=== PATIENT | female | born 1985 | race African-American/Black ===

== ENCOUNTER 2018-04-12 10:34 | Emergency (ER) | payer OTHER ==
[~2018-04-12] VITALS: Ht 165.1 cm; Wt 89.8 kg
[~2018-04-12 10:34] MED LIST: FERR-38 PO
[2018-04-12 11:32] LABS: BASOPHILS # (AUTO) 0.1 K/uL (0.0-8.0); BASOPHILS % (AUTO) 1.3 % (0.0-2.0); EOSINOPHILS # (AUTO) 0.1 K/uL (0.0-0.7); EOSINOPHILS % (AUTO) 1.2 % (0.0-7.0); HEMATOCRIT 35.6 % (31.2-41.9); HEMOGLOBIN 11.4 g/dL (10.9-14.3); LYMPHOCYTES # (AUTO) 2.2 K/uL (20.0-40.0); LYMPHOCYTES % (AUTO) 22.9 % (20.5-51.5); MEAN CORPUSCULAR HEMOGLOBIN 23.5 uug (24.7-32.8); MEAN CORPUSCULAR HGB CONC 32 g/dL (32.3-35.6); MEAN CORPUSCULAR VOLUME 73.5 fL (75.5-95.3); MONOCYTES # (AUTO) 0.4 K/uL (2.0-10.0); MONOCYTES % (AUTO) 4.5 % (0.0-11.0); NEUTROPHILS # (AUTO) 6.6 K/uL (1.8-8.9); NEUTROPHILS % (AUTO) 70.1 % (38.5-71.5); PLATELET COUNT (AUTO) 390 K/uL (179-408); RED BLOOD CELL COUNT(AUTO) 4.84 MIL/uL (3.63-4.92); WHITE BLOOD COUNT (AUTO) 9.5 K/uL (3.8-11.8)
[2018-04-12 11:37] LABS: CREATININE 0.7 mg/dL (0.6-1.3); POTASSIUM 3.8 mmol/L (3.5-5.1)
[2018-04-12 11:42] LABS: BILIRUBIN,DIRECT 0.1 mg/dL (0.0-0.2); BILIRUBIN,TOTAL 0.4 mg/dL (0.2-1.0); TOTAL PROTEIN, SERUM 7.6 g/dL (6.4-8.2)
[2018-04-12 11:50] LABS: THYROID STIMULATING HORMONE 1.62 mIU/mL (0.358-3.740)
--- NOTE | 2018-04-12 12:23 | NUR ---
pt ambulatory with a steady gait. Patient discharged to home in stable conditon. Written and verbal after care instructions given. Patient verbalizes understanding of instructions. COPIES OF EKG AND LAB TESTS ALSO GIVEN.
[2018-04-12 12:25] VITALS: BP 114/82
== END 2018-04-12 12:30 | disposition home or self-care (01) ==
LOC: ER 11:29
DX: R00.2 Palpitations (principal)
CPT/HCPCS: 36415; 70030-TC; 83550; 84443; 85025; 85730; 93005; A4663

== ENCOUNTER 2018-04-28 02:11 | Inpatient (IN) | payer OTHER ==
[~2018-04-28] VITALS: Ht 165.1 cm; Wt 91.6 kg
[2018-04-28] VITALS (15 sets, daily range): BP systolic 95–129; BP diastolic 52–79
[2018-04-28] MEDS ORDERED: DILTIAZEM HCL 25 MG IV IV ONE ×2 (02:45→04:15)
[2018-04-28] MEDS ORDERED: IV NORMAL SALINE 1000 ML BAG IV ONE ×2 (02:45→04:15)
[2018-04-28] MEDS ORDERED: DILTIAZEM HCL 25 MG IV ONE ×2 (02:58→03:31)
[2018-04-28] MEDS ORDERED: FERROUS GLUCONATE PO (03:25)
[2018-04-28 03:29] LABS: CREATININE 0.7 mg/dL (0.6-1.3); POTASSIUM 3.2 mmol/L (3.5-5.1)
[2018-04-28 03:31] LABS: BASOPHILS # (AUTO) 0.2 K/uL (0.0-8.0); BASOPHILS % (AUTO) 1.8 % (0.0-2.0); EOSINOPHILS # (AUTO) 0.1 K/uL (0.0-0.7); EOSINOPHILS % (AUTO) 1.1 % (0.0-7.0); HEMATOCRIT 32.9 % (31.2-41.9); HEMOGLOBIN 10.6 g/dL (10.9-14.3); LYMPHOCYTES # (AUTO) 4.4 K/uL (20.0-40.0); LYMPHOCYTES % (AUTO) 35.9 % (20.5-51.5); MEAN CORPUSCULAR HEMOGLOBIN 24.1 uug (24.7-32.8); MEAN CORPUSCULAR HGB CONC 32 g/dL (32.3-35.6); MONOCYTES # (AUTO) 0.6 K/uL (2.0-10.0); NEUTROPHILS # (AUTO) 6.9 K/uL (1.8-8.9); NEUTROPHILS % (AUTO) 56.2 % (38.5-71.5); PLATELET COUNT (AUTO) 476 K/uL (179-408); RED BLOOD CELL COUNT(AUTO) 4.39 MIL/uL (3.63-4.92); WHITE BLOOD COUNT (AUTO) 12.4 K/uL (3.8-11.8)
[2018-04-28] MEDS ORDERED: DILTIAZEM HCL 50 MG IV ONE (03:32)
--- NOTE | 2018-04-28 03:36 | NUR ---
Call placed to [facility], Dr. Vazquez speaking with BIANCA.
[2018-04-28] MEDS: DILTIAZEM HCL IV 125 MG in IV DEXTROSE 5% 100 ML IV PRN ×2 (03:44→06:51)
[2018-04-28] MEDS ORDERED: ENOXAPARIN SODIUM 80 MG/0.8 ML DISP.SYRIN SQ ONE ×2 (04:00→04:15)
[2018-04-28 04:02] LABS: *URINE HCG, QUAL NEGATIVE (NEGATIVE)
--- NOTE | 2018-04-28 04:03 | NUR ---
Dr. Contreras speaking to Dr. Dutta ([facility]).
[2018-04-28] MEDS ORDERED: MAGNESIUM HYDROXIDE 30 ML LIQUID UDC PO PRN (04:15)
[2018-04-28] MEDS ORDERED: ONDANSETRON 4 MG/2 ML VIAL IV PRN (04:15)
[2018-04-28] MEDS ORDERED: ACETAMINOPHEN 325 MG TABLET PO PRN (04:15)
[2018-04-28] MEDS ORDERED: HYDROCODONE/APAP 5-325MG TABLET PO PRN (04:15)
[2018-04-28] MEDS ORDERED: POTASSIUM CHLORIDE 100 ML ONE (04:15)
[2018-04-28] MEDS ORDERED: Z GUARD REMEDY PASTE 57 GM TUBE TOP PRN (04:15)
--- NOTE | 2018-04-28 04:22 | NUR ---
TITRATED CARDIZEM DRIP. INFUSING NOW AT 10 MG/HR. BP 122/85. HR 130. SA02 100% RA.
[2018-04-28 04:30] LABS: ALANINE AMINOTRANSFERASE 35 U/L (14-59); ALKALINE PHOSPHATASE 116 U/L (50-136); ASPARTATE AMINOTRANSFERASE 26 U/L (15-37); BILIRUBIN,DIRECT < 0.1 mg/dL (0.0-0.2); BILIRUBIN,TOTAL 0.2 mg/dL (0.2-1.0); TOTAL PROTEIN, SERUM 8.1 g/dL (6.4-8.2)
[2018-04-28] MEDS: POTASSIUM CHLORIDE 50 ML IV SCH ×2 (04:31→04:45)
--- NOTE | 2018-04-28 05:25 | NUR ---
Pt. admitted to CCU, under care of Dr. Dtuta Belongs List completed
--- NOTE | 2018-04-28 05:45 | NUR ---
ADMITTED FROM ER VIA GURNEY, ALERT & ORIENTED X3. ADM. DX OF RAPID AFID, RVR. ON CARDIZEM DRIP @ 10MG/HR ON LFA. ON RM AIR SAT OF 99%. NOT IN ANY DISTRESS.
[2018-04-28] MEDS ORDERED: DILTIAZEM HCL IV 125 MG in IV DEXTROSE 5% 100 ML IV PRN (06:45)
[2018-04-28 07:14] LABS: *AMPHETAMINE, URINE NEGATIVE (NEGATIVE); *BARBITURATE, URINE NEGATIVE (NEGATIVE); *CANNABINOID, URINE NEGATIVE (NEGATIVE); *COCCAINE, URINE NEGATIVE (NEGATIVE); *OPIATE, URINE NEGATIVE (NEGATIVE); *PHENCYCLIDINE SCREEN,URINE NEGATIVE (NEGATIVE)
--- NOTE | 2018-04-28 07:30 | NUR ---
received a 32 y/o female pt as case of A-Fib, pt alert ox3, connected to ecg monitor v/s showing atrial fib slow rate 93bpm. pt has two iv lines on lt hand and lt forearm, receiving cardizem iv @10mg/hr.
--- NOTE | 2018-04-28 07:45 | NUR ---
noticed patient still atrial fib, ekg done, cortez, DEVULCANIZER CHARGER informed about patient and no new orders given
[2018-04-28] MEDS ORDERED: FERROUS GLUCONATE 27 MG PO SCH (09:00)
[2018-04-28] MEDS ORDERED: FERROUS GLUCONATE 324 MG TABLET PO SCH (09:00)
--- NOTE | 2018-04-28 11:39 | NUR ---
DR CHERY WAS CONTACTED, UPDATES GIVEN REGARDS PT CONVERTING BACK TO SINUS RHYTHM, ORDERED TO DC SAVANNA FISH, AND HE WILL LATER TODAY TO ASSESS PT
--- NOTE | 2018-04-28 15:09 | NUR ---
SEEN BY DR CHERY, GAVE THE CLEARENCE FOR PATIENTS DISCHAREG TO HOME, AND WROTE DISCHARGE PRESCRIPTION.
--- NOTE | 2018-04-28 17:16 | NUR ---
PATIENT DISCHARGED TO HOME, DISCHARGE PRESCRIPTION AND EDUCATION GIVEN, ALL BELONGINGS RECEIVED AND FORM SIGNED. PT LEFT HOSPITAL ALONE AMBULATORY.
== END 2018-04-28 17:00 | disposition home or self-care (01) | DRG 201 ==
LOC: ER 02:13 → CCU 04:42
PROVIDERS: ADMIT Family Medicine; ATTEND Hospitalist
PROC: 3E033RZ Introduction of Antiarrhythmic into Peripheral Vein, Percutaneous Approach (ICD-10-PCS; principal; 2018-04-28)
DX: I48.91 Unspecified atrial fibrillation (principal); D64.9 Anemia, unspecified; Z83.49 Family history of other endocrine, nutritional and metabolic diseases; E87.6 Hypokalemia; D72.829 Elevated white blood cell count, unspecified; Z91.19 Patient's noncompliance with other medical treatment and regimen; N92.0 Excessive and frequent menstruation with regular cycle
CPT/HCPCS: 36415; 70030-TC; 71045; 80307; 83735; 84132; 84443; 84703; 85025; 85730; 86850; 86900; 86901; 93005; 93307; A4663; G0378; J1650; J3480; J3490; J7030; J7060

== ENCOUNTER 2022-02-22 09:38 | Inpatient (IN) | payer OTHER ==
[~2022-02-22] VITALS: Ht 165.1 cm; Wt 89.8 kg
[2022-02-22] VITALS (22 sets, daily range): BP systolic 93–125; BP diastolic 54–79
[~2022-02-22 09:38] MED LIST changes: -FERR-38 PO; +FERROUS GLUCONATE PO
[2022-02-22] MEDS ORDERED: IV NORMAL SALINE 500 ML BAG IV ONE ×2 (10:00→11:00)
[2022-02-22] MEDS ORDERED: ASPIRIN 81 MG TAB.CHEW PO ONE (10:00)
[2022-02-22] MEDS ORDERED: ASPIRIN 81 MG TAB.CHEW ONE (10:28)
[2022-02-22 10:36] LABS: *BILIRUBIN,URIN NEGATIVE (NEGATIVE); *BLOOD, URINE NEGATIVE (NEGATIVE); *CLARITY,URINE CLEAR (CLEAR); *KETONES,URINE NEGATIVE (NEGATIVE); *UROBILINOGEN,URINE 0.2 E.U./dl (NORMAL); LEUKOCYTE ESTERASE ,URINE 1+ (NEGATIVE); NITRITE, URINE NEGATIVE (NEGATIVE); UGLUCOSE NEGATIVE (NEGATIVE)
[2022-02-22 10:39] LABS: *COLOR,URINE COLORLESS (YELLOW)
[2022-02-22 10:40] LABS: *URINE HCG, QUAL NEGATIVE (NEGATIVE)
[2022-02-22 10:42] LABS: HEMATOCRIT 29.2 % (31.2-41.9); MEAN CORPUSCULAR HEMOGLOBIN 19.3 uug (24.7-32.8); MEAN CORPUSCULAR VOLUME 64.2 fL (75.5-95.3); PLATELET COUNT (AUTO) 372 K/uL (179-408)
[2022-02-22] MEDS ORDERED: DILTIAZEM HCL 50 MG IV ONE (10:53)
[2022-02-22 10:55] LABS: BILIRUBIN,TOTAL 0.4 mg/dL (0.2-1.0); CREATININE 0.8 mg/dL (0.6-1.3); POTASSIUM 3.5 mmol/L (3.5-5.1); TOTAL PROTEIN, SERUM 7.6 g/dL (6.4-8.2)
[2022-02-22] MEDS ORDERED: DILTIAZEM HCL IV 125 MG in IV NORMAL SALINE 100 ML IV PRN ×2 (11:00→13:30)
[2022-02-22 11:47] LABS: ETHANOL < 3 MG/DL (0-0)
[2022-02-22 12:06] LABS: *AMPHETAMINE, URINE NEGATIVE (NEGATIVE); *CANNABINOID, URINE NEGATIVE (NEGATIVE); *COCCAINE, URINE NEGATIVE (NEGATIVE); *OPIATE, URINE NEGATIVE (NEGATIVE); *PHENCYCLIDINE SCREEN,URINE NEGATIVE (NEGATIVE)
[2022-02-22 12:24] LABS: THYROID STIMULATING HORMONE 0.853 mIU/mL (0.358-3.740)
[2022-02-22 12:25] LABS: MAGNESIUM 1.7 mg/dL (1.8-2.4)
[2022-02-22 12:34] LABS: RBC,URINE NONE SEEN /HPF (0-3)
[2022-02-22 12:35] LABS: BACTERIA,URINE NONE SEEN /HPF (NONE SEEN); SQUAMOUS EPITHELIAL CELL,UR FEW /HPF (NONE SEEN); WBC,URINE 0-3 /HPF (0-3)
[2022-02-22 14:56] LABS: EOSINOPHILS % (MANUAL) 1 % (0-8); LYMPHOCYTES % (MANUAL) 26 % (20-40); MONOCYTES % (MANUAL) 4 % (2-10); NEUTROPHILS % (MANUAL) 69 % (42-75)
[2022-02-22] MEDS ORDERED: MAGNESIUM OXIDE 400 MG TABLET PO ONE (17:00)
[2022-02-22] MEDS ORDERED: CEphaleXIN 500 MG CAPSULE ONE (17:04)
[2022-02-22] MEDS ORDERED: MAGNESIUM OXIDE 400 MG TABLET ONE (17:04)
[2022-02-22] MEDS ORDERED: ENOXAPARIN SODIUM 40 MG/0.4 ML DISP.SYRIN SQ ONE (17:04)
[2022-02-22] MEDS: CEphaleXIN 500 MG CAPSULE PO SCH (17:14)
[2022-02-22] MEDS: ENOXAPARIN SODIUM 40 MG/0.4 ML DISP.SYRIN SQ SCH (17:14)
--- NOTE | 2022-02-22 23:13 | NUR ---
Assumed care from NANCY Jesus, all questions answered. Per report, pt presented with a feeling of palpitations denying SOB, weakness or any other symptoms. pt states she was drinking a "chlorophyl drink" and a meal with acai, pt sts she has a known sensitivity to caffeine. pt found in bed resting, easily arousable to voice, alert and oriented x 4. pt currently denies palpations or any other symptoms. pt on monitoring equipment to include three lead security monitor, automatic intermittent blood pressure and continuous pulse oximetry, vitals signs specifically heart rate and blood pressure are within desired parameters pt has a continuos infusion of cardiac medication attached to a patent IV located in the left hand. IV site is dry and intact, free of infiltrates, redness and swelling. pt skin is dry, warm and intact, pt has no further requests or complaints. RN will CTM.
[2022-02-23] VITALS (23 sets, daily range): BP systolic 84–123; BP diastolic 51–76
--- NOTE | 2022-02-23 01:33 | NUR ---
pt continues to rest in bed, easily arousable to verbal stimuli, pt remains connected to three lead desk monitor, automatic intermittent blood pressure and continuous pulse oximetry, pt has maintained a sinus rhythm with no intervals of afib or elevated heart rate. ROME and GAURAV, RN will CTM
[2022-02-23 05:10] LABS: HEMATOCRIT 28.1 % (31.2-41.9); MEAN CORPUSCULAR HEMOGLOBIN 19.4 uug (24.7-32.8); MEAN CORPUSCULAR VOLUME 64.3 fL (75.5-95.3); PLATELET COUNT (AUTO) 373 K/uL (179-408)
[2022-02-23 05:17] LABS: CREATININE 0.9 mg/dL (0.6-1.3); POTASSIUM 4.3 mmol/L (3.5-5.1)
[2022-02-23 05:23] LABS: BILIRUBIN,TOTAL 0.3 mg/dL (0.2-1.0); MAGNESIUM 1.8 mg/dL (1.8-2.4); PHOSPHOROUS 4.4 mg/dL (2.5-4.9)
[2022-02-23 06:53] LABS: LYMPHOCYTES % (MANUAL) 33 % (20-40); MONOCYTES % (MANUAL) 5 % (2-10); NEUTROPHILS % (MANUAL) 62 % (42-75)
--- NOTE | 2022-02-23 07:16 | NUR ---
pt weaned progressively off of cardiac medication over the past three hours, for the past two pt has been without any medication and has maintained a sinus rhythm in the high 60s to lows 70s with no interval of increased rate or change in rhythm. pt is resting in bed, easily arousable, with stable vital signs. care has been endorsed ro day shift critical care nurse. all questions answered. immigration patrol inspector and House Sup are aware of pts lack od titratable medications and will find an appropriate room asssignment for the pt
--- NOTE | 2022-02-23 07:30 | NUR ---
RECEIVED PT FROM [facility] . E RN PT ASLEEPY RESPIRATION SPONT AND EASY NO SOB OR RESPRTORY DISTRESS EKG MONITORY SHOWING SR HR 82B/IMIN BP 117/74 O2 SAT 99 % ON ROOM AIR
[2022-02-23] MEDS ORDERED: PANTOPRAZOLE SODIUM 40 MG VIAL ONE (08:47)
[2022-02-23] MEDS ORDERED: ENOXAPARIN SODIUM 40 MG/0.4 ML DISP.SYRIN SQ ONE (08:48)
[2022-02-23] MEDS ORDERED: CEphaleXIN 500 MG CAPSULE ONE ×2 (08:49→16:02)
[2022-02-23] MEDS: PANTOPRAZOLE SODIUM 40 MG VIAL IV SCH ×2 (09:08→09:09)
[2022-02-23] MEDS: CEphaleXIN 500 MG CAPSULE PO SCH ×2 (09:09→16:04)
[2022-02-23] MEDS: ENOXAPARIN SODIUM 40 MG/0.4 ML DISP.SYRIN SQ SCH (09:09)
--- NOTE | 2022-02-23 11:12 | NUR ---
PT MORE AWAKE AND ALERT WATING FOR PCP EKG SHOWING NSR
--- NOTE | 2022-02-23 12:42 | NUR ---
RESTING AT THIS TIME NO CHANGING IN EKG NSR
--- NOTE | 2022-02-23 12:43 | NUR ---
HR 81-88 B/MIN
--- NOTE | 2022-02-23 13:18 | NUR ---
DR LIA. CERVANTES AT BED SIDE SPOOK WITH PT DINENIL CHEST PAIN OR PALPATION NO SOB SPOOK PLAN OF CARE TO D/C HOME AND FALLOW UP WITH CARDIOLOGY HR 80B/MIN REGRALE AND NORMALE
[2022-02-23] MEDS ORDERED: NITR100C11 PO (13:56)
--- NOTE | 2022-02-23 15:58 | NUR ---
PT FULLY AWAKE AND ALERT WALKING WITH STADIY GITE D/C INSTRACTION GIVEN TO PT AND RX AND FALLOW UP CARE D/C HOME STABLE VS NSR HR 78B/MIN DINIALE ANY CHEST PAIN OR PALPATION
== END 2022-02-23 16:10 | disposition home or self-care (01) | DRG 309 ==
LOC: ER 09:39 → TRANSITION 16:15
PROVIDERS: ADMIT Registered Nurse; ATTEND Internal Medicine
PROC: 05H633Z Insertion of Infusion Device into Left Subclavian Vein, Percutaneous Approach (ICD-10-PCS; principal; 2022-02-22)
PROC: B547ZZA Ultrasonography of Left Subclavian Vein, Guidance (ICD-10-PCS; 2022-02-22)
DX: I48.0 Paroxysmal atrial fibrillation (principal); E87.1 Hypo-osmolality and hyponatremia; N39.0 Urinary tract infection, site not specified; E66.9 Obesity, unspecified; E83.42 Hypomagnesemia; D50.9 Iron deficiency anemia, unspecified; Z68.32 Body mass index [BMI] 32.0-32.9, adult
CPT/HCPCS: 36415; 70030-TC; 71045; 83735; 84100; 84443; 84484; 84703; 85025; 87086; 93005; 93307; A4663; C9113; G0378; G0480; J1650; J3490; J7040